=== PATIENT | female | born 1995 | race Caucasian/White ===

== ENCOUNTER 2017-08-25 04:56 | Emergency (ER) | payer OTHER ==
[~2017-08-25] VITALS: Ht 167.6 cm; Wt 56.0 kg
[2017-08-25 04:59] VITALS: BP 111/81; PULSE 87; RESP 15; TEMP 97.6; O2SAT 96
[2017-08-25] MEDS ORDERED: SODIUM CHLOR 0.9% 1000 ML INJ 1,000 ML IV SCH (05:01)
[2017-08-25 05:04] VITALS: RESP 15; O2SAT 96
--- NOTE | 2017-08-25 05:11 | PD ---
HPI Chief Complaint: Abdominal Pain Time Seen by Provider: 05:01 Travel History International Travel<30 days: No Contact w/Intl Traveler<30days: No Traveled to known affect area: No History of Present Illness HPI 21-year-old female presents to the emergency department from home by EMS transport for evaluation of lower abdominal pain with nausea vomiting diarrhea since 3 AM. Patient estimates at least 10 episodes of emesis. Patient states after vomiting stomach contents she then has noted some coffee-ground emesis. Patient states she did have. That did not taste right to her but otherwise no dietary indiscretion well water ingestion or foreign travel. Patient has had subjective fever and chills. No dysuria frequency urgency flank pain or hematuria. No report of vaginal discharge or vaginal bleeding. Patient has prior history of ruptured ovarian cyst. Last menstrual period was reportedly 1 week ago. Patient rates pain as 6/10 intensity. PFSH Past Medical History Narrative Medical Ovarian cyst, sports induced asthma, occasional alcohol use; nursing notes reviewed Medical History: Denies Significant Hx Respiratory: Yes (SPORTS INDUCED ASTHMA) ?: Not LMP: 08/19/17 Past Surgical History Surgical History: No Previous Surgery Social History Alcohol Use: Yes Tobacco Use: No Substance Use: No Allergies-Medications (Allergen,Severity, Reaction): Coded Allergies: shrimp (Verified Allergy, Severe, 08/25/17) Reported Meds & Prescriptions Reported Meds & Active Scripts Active No Active Prescriptions or Reported Medications Review of Systems Except as stated in HPI: all other systems reviewed are Neg Physical Exam Narrative GENERAL: Well-developed well-nourished female in no acute distress or respiratory distress SKIN: Warm and dry. HEAD: Normocephalic. EYES: No scleral icterus. No injection or drainage. NECK: Supple, trachea midline. No JVD or lymphadenopathy. CARDIOVASCULAR: Regular rate and rhythm without murmurs, gallops, or rubs. RESPIRATORY: Breath sounds equal bilaterally. No accessory muscle use. GASTROINTESTINAL: Abdomen soft, diffusely mildly tender, no guarding no rebound ; nondistended. MUSCULOSKELETAL: No cyanosis, or edema. BACK: Nontender without obvious deformity. No CVA tenderness. Data Data Last Documented VS Vital Signs Date Time Temp Pulse Resp B/P (MAP) Pulse Ox O2 Delivery O2 Flow Rate FiO2 08/25/17 05:04 15 96 Room Air 08/25/17 04:59 97.6 87 111/81 (91) Orders Orders Complete Blood Count With Diff (08/25/17 05:01) Comprehensive Metabolic Panel (08/25/17 05:01) Lipase (08/25/17 05:01) Lactic Acid (08/25/17 05:01) Urinalysis - C+S If Indicated (08/25/17 05:01) Iv Access Insert/Monitor (08/25/17 05:01) Ecg Monitoring (08/25/17 05:01) Oximetry (08/25/17 05:01) Sodium Chlor 0.9% 1000 Ml Inj (Ns 1000 M (08/25/17 05:01) Sodium Chloride 0.9% Flush (Ns Flush) (08/25/17 05:15) Ketorolac Inj (Toradol Inj) (08/25/17 05:15) Ed Urine Pregnancytest Poc (08/25/17 05:01) Ct Abd/Pel W/O Iv Contrast (08/25/17 ) Labs Laboratory Tests Test 08/25/17 05:10 White Blood Count 11.9 TH/MM3 Red Blood Count 4.64 MIL/MM3 Hemoglobin 13.6 GM/DL Hematocrit 40.6 % Mean Corpuscular Volume 87.5 FL Mean Corpuscular Hemoglobin 29.3 PG Mean Corpuscular Hemoglobin Concent 33.4 % Red Cell Distribution Width 13.0 % Platelet Count 261 TH/MM3 Mean Platelet Volume 9.4 FL Neutrophils (%) (Auto) 85.7 % Lymphocytes (%) (Auto) 7.0 % Monocytes (%) (Auto) 5.8 % Eosinophils (%) (Auto) 1.1 % Basophils (%) (Auto) 0.4 % Neutrophils # (Auto) 10.2 TH/MM3 Lymphocytes # (Auto) 0.8 TH/MM3 Monocytes # (Auto) 0.7 TH/MM3 Eosinophils # (Auto) 0.1 TH/MM3 Basophils # (Auto) 0.0 TH/MM3 CBC Comment DIFF FINAL Differential Comment Urine Color YELLOW Urine Turbidity HAZY Urine pH 7.5 Urine Specific [place] 1.022 Urine Protein TRACE mg/dL Urine Glucose (UA) NEG mg/dL Urine Ketones 10 mg/dL Urine Occult Blood NEG Urine Nitrite NEG Urine Bilirubin NEG Urine Urobilinogen LESS THAN 2.0 MG/DL Urine Leukocyte Esterase SMALL Urine RBC 1 /hpf Urine WBC 1 /hpf Urine Squamous Epithelial Cells 3 /hpf Urine Bacteria FEW /hpf Urine Hyaline Casts 2 /lpf Urine Mucus FEW /lpf Microscopic Urinalysis Comment CULT NOT INDICATED Blood Urea Nitrogen 12 MG/DL Creatinine 0.72 MG/DL Random Glucose 96 MG/DL Total Protein 6.5 GM/DL Albumin 3.9 GM/DL Calcium Level 8.8 MG/DL Alkaline Phosphatase 58 U/L Aspartate Amino Transf (AST/SGOT) 18 U/L Alanine Aminotransferase (ALT/SGPT) 16 U/L Total Bilirubin 1.0 MG/DL Sodium Level 142 MEQ/L Potassium Level 3.8 MEQ/L Chloride Level 109 MEQ/L Carbon Dioxide Level 21.6 MEQ/L Anion Gap 11 MEQ/L Estimat Glomerular Filtration Rate 102 ML/MIN Lactic Acid Level 1.6 mmol/L Lipase 87 U/L [facility] Medical Decision Making Medical Screen Exam Complete: Yes Emergency Medical Condition: Yes Medical Record Reviewed: Yes Interpretation(s) poc hcg: negative CBC & BMP Diagram 08/25/17 05:10 Total Protein 6.5, Albumin 3.9, Calcium Level 8.8, Alkaline Phosphatase 58, Aspartate Amino Transf (AST/SGOT) 18, Alanine Aminotransferase (ALT/SGPT) 16, Total Bilirubin 1.0 Vital Signs Date Time Temp Pulse Resp B/P (MAP) Pulse Ox O2 Delivery O2 Flow Rate FiO2 08/25/17 05:04 15 96 Room Air 08/25/17 04:59 97.6 87 15 111/81 (91) 96 ua: Few bacteria; culture not indicated Lactic acid: 1.6, not elevated Last Impressions Abdomen/Pelvis CT 08/25/17 0000 Signed Impressions: Service Date/Time: Friday, August 25, 2017 05:51 - CONCLUSION: Normal examination. Lito Pantoja MD Differential Diagnosis Gastroenteritis, viral syndrome, foodborne illness, , ectopic , UTI, appendicitis, STI, ruptured ovarian cyst, ovarian torsion Narrative Course IV access obtained specimens collected and sent for resulting patient administered IV fluid bolus along with Zofran Lab values found to be in normal range except for nonspecific elevation of white cell count 11,900 [id number] hCG is negative Urinalysis culture not indicated Chemistries grossly within normal limits CT abdomen pelvis reveals no acute intra-abdominal or pelvic abnormality Patient feels symptomatically improved after IV fluids and Zofran as well as one -time dose of Toradol Patient tolerating oral hydration well At this point time patient is stable for outpatient management is encouraged to follow clear liquid diet and monitor temperature for fever will be given prescription for Zofran patient is encouraged to return immediately to the emergency department for fever pain vomiting or any concerns Diagnosis Primary Impression: Abdominal pain Additional Impression: Gastroenteritis Referrals: Primary Care Physician call for appointment Patient Instructions: General Instructions Additional Instructions: Increase fluid hydration Follow clear liquid diet for next 12-24 hours advance as tolerated to bland/ brat diet and regular diet avoiding fried and fatty foods Monitor temperature every 4 hours with thermometer take as needed acetaminophen/ Tylenol every 4-6 hours for fever 100.4F or greater; may use sparingly ibuprofen/Advil/Motrin 600 mg as often as every 6-8 hours for pain associated with inflammation or for fever 100.4F or greater try to avoid ibuprofen use for the first 24 hours Return to the emergency department for any concerns or change in condition such as fever vomiting recurrent/increased pain Use Zofran as prescribed as needed for nausea and/or vomiting Follow-up with your primary care provider Rest Med/Other Pt SpecificInfo: Prescription(s) given Scripts Ondansetron Odt (Zofran Odt) 4 Mg Tab 4 MG SL Q6HR Y for Nausea/Vomiting, #10 TAB 0 Refills Prov: Mellisa Gomez MD 08/25/17 Disposition: 01 DISCHARGE HOME Condition: Stable Mellisa Gomez MD Aug 25, 2017 05:11
[2017-08-25] MEDS ORDERED: SODIUM CHLORIDE 0.9% FLUSH 10 ML FLUSH IV FLUSH PRN (05:15)
[2017-08-25] MEDS ORDERED: KETOROLAC TROMETHAMINE 30 MG/ML (IVP) VIAL IVP ONE (05:15)
[2017-08-25 05:24] LABS: AUTOMATED NEUTROPHIL # 10.2 TH/MM3 (1.8-7.7); BASOPHIL % 0.4 % (0.0-2.0); EOSINOPHIL # 0.1 TH/MM3 (0-0.4); EOSINOPHIL % 1.1 % (0.0-4.0); HEMATOCRIT 40.6 % (35.0-46.0); HEMOGLOBIN 13.6 GM/DL (11.6-15.3); LYMPHOCYTE # 0.8 TH/MM3 (1.0-4.8); MEAN CELL VOLUME 87.5 FL (80.0-100.0); MEAN CORPUSCULAR HEMOGLOBIN 29.3 PG (27.0-34.0); MEAN CORPUSCULAR HGB CONC 33.4 % (32.0-36.0); MEAN PLATELET VOLUME 9.4 FL (7.0-11.0); MONO % 5.8 % (0.0-8.0); MONOCYTE # 0.7 TH/MM3 (0-0.9); NEUT % 85.7 % (16.0-70.0); PLATELET COUNT 261 TH/MM3 (150-450); RED BLOOD COUNT 4.64 MIL/MM3 (4.00-5.30); WHITE BLOOD COUNT 11.9 TH/MM3 (4.0-11.0)
[2017-08-25 05:35] LABS: BACTERIA, URINE FEW /hpf; BILIRUBIN, URINE NEG (NEG); BLOOD, URINE NEG (NEG); GLUCOSE,URINE NEG (NEG); HYALINE CAST, URINE 2 /lpf (RARE); KETONE, URINE 10 mg/dL (NEG); MUCUS URINE FEW /lpf (OCC); NITRITE,URINE NEG (NEG); PH, URINE 7.5 (5.0-8.5); SQUAMOUS EPITHELIAL CELL URINE 3 /hpf (0-5); URINE COLOR YELLOW (YELLW/STRAW); URINE LEUKOCYTE ESTERASE SMALL (NEG)
[2017-08-25 05:38] LABS: ALBUMIN 3.9 GM/DL (3.4-5.0); ALT (GPT) 16 U/L (10-53); AST (GOT) 18 U/L (15-37); BICARBONATE 21.6 MEQ/L (21.0-32.0); BLOOD UREA NITROGEN 12 MG/DL (7-18); CALCIUM 8.8 MG/DL (8.5-10.1); CHLORIDE 109 MEQ/L (98-107); CREATININE 0.72 MG/DL (0.50-1.00); GLOMERULAR FILTRATION RATE 102 ML/MIN (>89); GLUCOSE,RANDOM 96 MG/DL (74-106); SODIUM (NA) 142 MEQ/L (136-145)
[2017-08-25 05:41] LABS: ALKALINE PHOSPHATASE 58 U/L (45-117); TOTAL PROTEIN 6.5 GM/DL (6.4-8.2)
--- NOTE | 2017-08-25 06:05 | RADRPT ---
EXAM DATE/TIME: 08/25/2017 05:51 [facility] COMPARISON: No previous studies available for comparison. INDICATIONS : Abdomen pain with diarrhea. ORAL CONTRAST: No oral contrast ingested. RADIATION DOSE: 5.87 CTDIvol (mGy) MEDICAL HISTORY : None SURGICAL HISTORY : None. ENCOUNTER: Initial ACUITY: 1 day PAIN SCALE: 7/10 LOCATION: abdomen TECHNIQUE: Volumetric scanning of the abdomen and pelvis was performed. Using automated exposure control and ad justment of the mA and/or kV according to patient size, radiation dose was kept as low as reasonably achievable to obtain optimal diagnostic quality images. DICOM format image data is available electro nically for review and comparison. FINDINGS: LOWER LUNGS: The visualized lower lungs are clear. LIVER: Homogeneous density without lesion. There is no dilation of the biliary tree. No calcified gallston es. SPLEEN: Normal size without lesion. PANCREAS: Within normal limits. KIDNEYS: Normal in size and shape. There is no mass, stone, or hydronephrosis. ADRENAL GLANDS: Within normal limits. VASCULAR: There is no aortic aneurysm. BOWEL/MESENTERY: The stomach, small bowel, and colon demonstrate no acute abnormality. There is no free intraperitone al air or fluid. ABDOMINAL WALL: Within normal limits. RETROPERITONEUM: There is no lymphadenopathy. BLADDER: No wall thickening or mass. REPRODUCTIVE: Within normal limits. INGUINAL: There is no lymphadenopathy or hernia. MUSCULOSKELETAL: Within normal limits for patient age. CONCLUSION: Normal examination. Lito Pantoja MD on August 25, 2017 at 6:01 Board Certified Radiologist. This report was verified electronically.
[2017-08-25] MEDS ORDERED: ZOFR4TAB3 SL (07:04)
[2017-08-25] MEDS ORDERED: ONDANSETRON ODT 4 MG TAB PO ONE (07:30)
[2017-08-25 07:33] VITALS: RESP 17
== END 2017-08-25 08:12 | disposition home or self-care (01) ==
LOC: NEPC 04:56
DX: R10.30 Lower abdominal pain, unspecified (principal); K52.9 Noninfective gastroenteritis and colitis, unspecified; R11.2 Nausea with vomiting, unspecified; J45.909 Unspecified asthma, uncomplicated
CPT/HCPCS: 74176; 80053; 81001; 83605; 83690; 84703; 85025; 96361; 96374; 99284; J1885; J7030